=== PATIENT | female | born 1995 | race Caucasian/White ===

== ENCOUNTER 2020-07-29 22:38 | Emergency (ER) | payer OTHER ==
[2020-07-29] MEDS ORDERED: Dexamethasone 10 MG/ML VIAL ONE (23:47)
[2020-07-29] MEDS ORDERED: Acetaminophen 500 MG TAB ONE (23:48)
[2020-07-29] MEDS ORDERED: Ibuprofen 100 MG/5 ML UDCUP ONE (23:48)
== END 2020-07-29 23:51 | disposition home or self-care (01) ==
LOC: CSHERS 22:38
DX: J02.9 Acute pharyngitis, unspecified (principal); I47.1 Supraventricular tachycardia; K50.90 Crohn's disease, unspecified, without complications; F17.210 Nicotine dependence, cigarettes, uncomplicated; F17.290 Nicotine dependence, other tobacco product, uncomplicated
CPT/HCPCS: 99282; J1100

== ENCOUNTER 2021-05-26 10:51 | Emergency (ER) | payer OTHER, BC ==
[2021-05-26] MEDS ORDERED: Fentanyl 100 MCG/2 ML VIAL ONE (11:50)
[2021-05-26] MEDS ORDERED: Ketorolac Tromethamine 30 MG/ML VIAL ONE (11:53)
== END 2021-05-26 12:25 | disposition home or self-care (01) ==
LOC: CSHERS 10:51
DX: S70.02XA Contusion of left hip, initial encounter (principal); S00.83XA Contusion of other part of head, initial encounter; M25.562 Pain in left knee; I47.1 Supraventricular tachycardia; K50.90 Crohn's disease, unspecified, without complications; F17.290 Nicotine dependence, other tobacco product, uncomplicated; V89.2XXA Person injured in unspecified motor-vehicle accident, traffic, initial encounter
CPT/HCPCS: 70450; 70486; 96374; 96375; J1885; J3010